=== PATIENT | female | born 1965 | race Two or more races ===

== ENCOUNTER 2019-05-31 10:01 | Emergency (ER) | payer OTHER ==
[2019-05-31 10:24] VITALS: TEMP 98.1; BMI 25.0
[2019-05-31] MEDS ORDERED: ACETAMINOPHEN 1000 MG/100 ML VIAL (NON FORMULARY) IVPB ONE (10:53)
[2019-05-31] MEDS ORDERED: FAMOTIDINE 20 MG/50 ML IVPB 20 MG/50 ML MG IVPB ONE ×2 (10:53→11:13)
[2019-05-31] MEDS ORDERED: SODIUM CHLORIDE 1,000 ML IV STA (10:53)
[2019-05-31] MEDS ORDERED: ONDANSETRON *ODT* 4 MG TABLET SL ONE ×2 (10:55→14:01)
[2019-05-31] MEDS ORDERED: METOCLOPRAMIDE HCL INJECTION 10 MG/2 ML VIAL IVPB ONE (11:12)
[2019-05-31] MEDS ORDERED: ACETAMINOPHEN INJECTION 100 ML IVPB ONE (11:13)
[2019-05-31] MEDS ORDERED: METOCLOPRAMIDE HCL INJECTION 10 MG/2 ML VIAL ONE (11:13)
--- NOTE | 2019-05-31 11:24 | PDOC ---
History of Present Illness - General Chief Complaint: Pain Stated Complaint: ABD. PAIN/ VOMITING Time Seen by Provider: 05/31/19 10:46 History Source: Patient Exam Limitations: Clinical Condition - History of Present Illness Travel History: No Initial Comments: 05/31/19 11:19 Patient with past medical history of hypertension and hyperlipidemia on meds which patient does not recall home meds presented with complaint of sudden onset of epigastric and right upper quadrant pain which patient described as sharp pain with nausea and vomiting since this morning. Patient reported vomiting 3 times this morning. Patient reported pain as sharp and radiating to right side of back. Denies fever, chills, body aches, shortness of breath, diarrhea, constipation, chest pain. Patient did not take anything for symptoms Timing/Duration: reports: constant Quality: reports: moderate, sharpness Abdominal Pain Onset Location: reports: RUQ, epigastric Pain Radiation: reports: back Activities at Onset: reports: none Past History - Travel Traveled outside of the country in the last 30 days: No Close contact w/someone who was outside of country & ill: No - Past Medical History Allergies/Adverse Reactions: Allergies Allergy/AdvReac Type Severity Reaction Status Date / Time No Known Drug Allergies Allergy Verified 05/31/19 10:16 Home Medications: Ambulatory Orders Atorvastatin Ca [Lipitor] 20 mg PO HS 05/31/19 Famotidine [Pepcid -] 40 mg PO DAILY #7 tablet 05/31/19 Losartan Potassium 100 mg PO DAILY 05/31/19 Mag Hydrox/Aluminum Hyd/Simeth [Maalox Advanced Suspension] 30 ml PO Q8H PRN # 200 ml 05/31/19 Ondansetron [Zofran *Odt*] 4 mg SL Q8H PRN #12 od.tablet 05/31/19 CVA: No COPD: No CHF: No DVT: No HTN: Yes Hypercholesterolemia: Yes - Immunization History Immunization Up to Date: Yes - Psycho Social/Smoking Cessation Hx Smoking History: Never smoked Have you smoked in the past 12 months: No Information on smoking cessation initiated: No Hx Alcohol Use: No Drug/Substance Use Hx: No Substance Use Type: None Review of Systems - Review of Systems Able to Perform ROS?: Yes Is the patient limited German proficient: No Constitutional: No: Chills, Fever, Malaise HEENTM: No: Symptoms Reported, See HPI, Eye Pain, Blurred Vision, Tearing, Recent change in vision, Double Vision, Cataracts, Ear Pain, Ocular Prothesis, Ear Discharge, Nose Pain, Nose Congestion, Tinnitus, Nose Bleeding, Hearing Loss , Throat Pain, Throat Swelling, Mouth Pain, Dental Problems, Difficulty Swallowing, Mouth Swelling, Other Respiratory: No: Symptoms reported, See HPI, Cough, Orthopnea, Shortness of Breath, SOB with Exertion, SOB at Rest, Stridor, Wheezing, Productive cough, Hemoptysis, Other Cardiac (ROS): No: Symptoms Reported, See HPI, Chest Pain, Edema, Irregular Heart Rate, Lightheadedness, Palpitations, Syncope, Chest Tightness, Other ABD/GI: Yes: Symptoms Reported, See HPI, Nausea, Vomiting, Abdominal cramping ( epigastric/ RUQ abd pains). No: Abdominal Distended, Blood Streaked Bowels, Constipated, Diarrhea, Difficulty Swallowing, Poor Appetite, Poor Fluid Intake, Rectal Bleeding, Indigestion : No: Burning, Discharge, Frequency, Urgency Musculoskeletal: No: Symptoms Reported Integumentary: No: Symptoms Reported All Other Systems: Reviewed and Negative *Physical Exam - Vital Signs Last Vital Signs Temp Pulse Resp BP Pulse Ox 98.1 F 64 17 149/97 100 05/31/19 10:17 05/31/19 10:17 05/31/19 10:17 05/31/19 10:17 05/31/19 10:17 - Physical Exam 05/31/19 11:23 GENERAL: Well developed, well nourished. Awake and alert in moderate acute distress. HEENT: Normocephalic, atraumatic. PERRLA, EOMI. No conjunctival pallor. Sclera are non-icteric. Moist mucous membranes. Oropharynx is clear. NECK: Supple. Full ROM. CARDIOVASCULAR: Regular rate and rhythm. No murmurs, rubs, or gallops. Distal pulses are 2+ and symmetric. PULMONARY: No evidence of respiratory distress. Lungs clear to auscultation bilaterally. No wheezing, rales or rhonchi. ABDOMINAL: Soft. Moderate tenderness epigastric and right upper quadrant region. Non- distended. No rebound or guarding. No organomegaly. Normoactive bowel sounds. MUSCULOSKELETAL Normal range of motion at all joints. SKIN: Warm and dry. Normal capillary refill. No rashes. No jaundice. no cyanosis NEUROLOGICAL: Alert, awake, appropriate. Gait is normal without ataxia. PSYCHIATRIC: Cooperative. Good eye contact. Appropriate mood General Appearance: Yes: Nourished, Appropriately Dressed, Apparent Distress, Moderate Distress ED Treatment Course - LABORATORY CBC & Chemistry Diagram: 05/31/19 11:09 05/31/19 11:09 - RADIOLOGY Radiology Studies Ordered: Category Date Time Status ABDOMEN US -LIMITED [US] Stat Ultrasound 05/31/19 11:06 Ordered Medical Decision Making - Medical Decision Making 05/31/19 11:20 Patient with past medical history of hypertension and hyperlipidemia on meds which patient does not recall home meds presented with complaint of sudden onset of epigastric and right upper quadrant pain which patient described as sharp pain with nausea and vomiting since this morning. Patient reported vomiting 3 times this morning. Patient reported pain as sharp and radiating to right side of back. Denies fever, chills, body aches, shortness of breath, diarrhea, constipation, chest pain. Patient did not take anything for symptoms Exam significant for patient to moderate acute distress. Moderate tenderness to epigastric right upper quadrant without guarding or rebound. No jaundice on exam. Normal cardio and lung exam. Symptoms likely gallstone versus cholecystitis versus less likely renal stone. CBC, CMP and lipase lab ordered. UA and urine culture lab ordered. Tylenol 1 g IV, Pepcid 20 mg IV and Reglan 10 mg IV ordered for abdominal pain and nausea. IV hydration with 1 L normal saline ordered for IV hydration. Abdominal ultrasound ordered to rule out gallstone or cholecystitis. Reassess after labs 05/31/19 14:33 CBC shows mildly elevated WBC which could be attributed from vomiting. Abdominal ultrasound showed mildly dilated CBD with no evidence of acute cholecystitis. LFTs and bilirubin labs normal. Patient with improvement in abdominal pain post Tylenol and IV meds. Ultrasound shows findings fatty infiltrate to be the cause of patient's pain. Patient stable for discharge on Pepcid twice daily for a week, Maalox as needed for abdominal pain and Tylenol for pain with GI follow-up Discharge - Discharge Information Problems reviewed: Yes Clinical Impression/Diagnosis: Abdominal pain Qualifiers: Abdominal location: right upper quadrant Qualified Code(s): R10.11 - Right upper quadrant pain Nausea & vomiting Qualifiers: Vomiting type: unspecified Vomiting Intractability: non-intractable Qualified Code(s): R11.2 - Nausea with vomiting, unspecified Condition: Improved Disposition: HOME - Admission No - Additional Discharge Information Prescriptions: Famotidine [Pepcid -] 40 mg PO DAILY #7 tablet Mag Hydrox/Aluminum Hyd/Simeth [Maalox Advanced Suspension] 30 ml PO Q8H PRN # 200 ml PRN Reason: abdominal discomfort Ondansetron [Zofran *Odt*] 4 mg SL Q8H PRN #12 od.tablet PRN Reason: vomiting - Follow up/Referral Referrals: Esau Garcia DO [Staff Physician] - Antoni Mendoza MD [Primary Care Provider] - - Patient Discharge Instructions Patient Printed Discharge Instructions: DI for Nonalcoholic Fatty Liver Disease Additional Instructions: Your labs are normal. Your abdominal ultrasound shows fatty liver infiltrate otherwise normal exam. Take prescribed medications as needed for abdominal discomfort and you can Take Tylenol as well for pain. Follow-up with referred GI doctor Dr. Miranda - Post Discharge Activity
[2019-05-31 11:35] LABS: BASO % 0.4 % (0-2.0); EOS % 0.5 % (0-4.5); HEMATOCRIT 37.4 % (32.4-45.2); HEMOGLOBIN 12.4 GM/dL (10.7-15.3); LYMPH % 14.8 % (8-40); MCH 27.5 pg (25.7-33.7); MCHC 33.2 g/dl (32.0-36.0); MEAN CELL VOLUME 82.6 fl (80-96); MEAN PLT VOLUME 8.2 fl (7.5-11.1); MONO % 3.2 % (3.8-10.2); NEUT % 81.1 % (42.8-82.8); PLATELET COUNT 310 K/MM3 (134-434); RBC 4.53 M/mm3 (3.60-5.2); WHITE BLOOD COUNT 14.3 K/mm3 (4.0-10.0)
[2019-05-31 12:05] LABS: ALBUMIN 4.1 g/dl (3.4-5.0); BILIRUBIN,TOTAL 0.4 mg/dL (0.2-1); BLOOD UREA NITROGEN 14.8 mg/dL (7-18); CALCIUM 9.2 mg/dL (8.5-10.1); CREATININE 0.9 mg/dL (0.55-1.3); POTASSIUM 4.2 mmol/L (3.5-5.1); TOT PROT 8.1 g/dl (6.4-8.2)
[2019-05-31 13:15] LABS: URINE APPEARANCE Clear; URINE BILIRUBIN Negative (NEGATIVE); URINE COLOR Yellow; URINE GLUCOSE (UA) Negative (NEGATIVE); URINE KETONE Negative (NEGATIVE); URINE LEUK ESTERASE Negative (NEGATIVE); URINE NITRITE Negative (NEGATIVE); URINE PROTEIN Negative (NEGATIVE); URINE UROBILINOGEN 0.2 mg/dL (0.2-1.0)
[2019-05-31 13:27] LABS: EPI CELLS 0.4 /HPF (0-5/HPF); HYALINE CASTS 3.34 /lpf (0-8); URINE RBC 1.4 /hpf (0-4); URINE WBC 0.7 /hpf (0-5)
[2019-05-31] MEDS ORDERED: ONDANSETRON 4 MG/2 ML VIAL ONE (14:15)
[2019-05-31] MEDS ORDERED: ONDANSETRON *ODT* 4 MG TABLET ONE (14:19)
[2019-05-31 14:23] VITALS: BP 123/74; PULSE 80
== END 2019-05-31 14:23 | disposition home or self-care (01) ==
LOC: JER 10:01
PROC: 3E033GC Introduction of Other Therapeutic Substance into Peripheral Vein, Percutaneous Approach (ICD-10-PCS; principal; 2019-05-31)
PROC: 3E033GC Introduction of Other Therapeutic Substance into Peripheral Vein, Percutaneous Approach (ICD-10-PCS; 2019-05-31)
PROC: 3E033NZ Introduction of Analgesics, Hypnotics, Sedatives into Peripheral Vein, Percutaneous Approach (ICD-10-PCS; 2019-05-31)
DX: R10.11 Right upper quadrant pain (principal); R11.2 Nausea with vomiting, unspecified; K76.0 Fatty (change of) liver, not elsewhere classified; I10 Essential (primary) hypertension; E78.5 Hyperlipidemia, unspecified; E78.00 Pure hypercholesterolemia, unspecified
CPT/HCPCS: 36415; 76705-TC; 80053; 81003; 83690; 85025; 87086; 96365; 96375; 99283-25; J0131; J7030; Q0162

== ENCOUNTER 2022-11-06 22:34 | Emergency (ER) | payer OTHER ==
[~2022-11-06 22:34] MED LIST: LIDOCAINE PATCH REMOVAL MC SCH
[2022-11-06 22:38] VITALS: RESP 16; TEMP 98.1; BMI 25.9
[2022-11-06] MEDS ORDERED: KETOROLAC TROMETHAMINE 30 MG/1 ML VIAL IM ONE (23:11)
[2022-11-06] MEDS ORDERED: LIDOCAINE 5% TOPICAL PATCH TP ONE (23:11)
[2022-11-06] MEDS ORDERED: CYCLOBENZAPRINE HCL 5 MG TABLET PO ONE (23:20)
[2022-11-06] MEDS ORDERED: KETOROLAC TROMETHAMINE 30 MG/1 ML VIAL ONE (23:23)
[2022-11-06] MEDS ORDERED: CYCLOBENZAPRINE HCL 5 MG TABLET ONE (23:23)
[2022-11-06] MEDS ORDERED: LIDOCAINE 5% TOPICAL PATCH ONE (23:23)
[2022-11-07 01:33] VITALS: BP 153/101; PULSE 69
[2022-11-07] MEDS ORDERED: CYCLOBENZAPRINE HCL 5 MG TABLET PO SCH (10:00)
[2022-11-07] MEDS ORDERED: LIDOCAINE PATCH REMOVAL MC SCH (10:00)
== END 2022-11-07 02:07 | disposition home or self-care (01) ==
LOC: JER 22:34
PROC: 3E0233Z Introduction of Anti-inflammatory into Muscle, Percutaneous Approach (ICD-10-PCS; principal; 2022-11-06)
DX: M25.551 Pain in right hip (principal); M54.50 Low back pain, unspecified; I10 Essential (primary) hypertension
CPT/HCPCS: 72131-TC; 72170-TC-FY; 73502-TC-RT-FY; 99284-25

== ENCOUNTER 2024-01-17 11:34 | Emergency (ER) | payer OTHER ==
[2024-01-17 11:45] VITALS: BP 151/93; PULSE 76; RESP 18; TEMP 98.8; BMI 26.5
[2024-01-17] MEDS ORDERED: CYCLOBENZAPRINE HCL 10 MG TABLET (FP) PO ONE (12:27)
[2024-01-17] MEDS ORDERED: CYCLOBENZAPRINE HCL 10 MG TABLET (FP) ONE (12:31)
[2024-01-17] MEDS ORDERED: KETOROLAC TROMETHAMINE 30 MG/1 ML VIAL ONE (12:31)
[2024-01-17] MEDS: KETOROLAC TROMETHAMINE 30 MG/1 ML VIAL IM ONE (12:45)
== END 2024-01-17 13:07 | disposition home or self-care (01) ==
LOC: JERFT 11:34
PROC: 3E0233Z Introduction of Anti-inflammatory into Muscle, Percutaneous Approach (ICD-10-PCS; principal; 2024-01-17)
DX: M54.2 Cervicalgia (principal); R20.0 Anesthesia of skin; R20.2 Paresthesia of skin; R53.1 Weakness
CPT/HCPCS: 99284-25